=== PATIENT | male | born 1955 | race Caucasian/White ===

== ENCOUNTER 2018-01-17 15:43 | Outpatient (CLI) | payer OTHER ==
--- NOTE | 2018-01-17 16:45 | CT ---
CT CHEST PULMONARY LUNG SCAN NONCONTRAST: 01/17/18 HISTORY: Tobacco abuse. Lung screening. FINDINGS: At the left posterolateral lung bases, a 0.6 cm oval noncalcified subpleural nodule. Immediately infe rior to this are two adjacent nonspecific nodules estimated at 0.2 cm diameter. Calcified granulomata area also present. No pleural fluid, pneumothorax, or mediastinal adenopathy. Prominent calcificatio n within the arteries including the coronary arteries. Liver is diffusely hypodense. IMPRESSION: 1. Left lower lobe subpleural nodule, 0.6 cm. 2. Lung Rads category 3. Indeterminate finding requiring low dose CT followup. Please consider l ow dose CT followup in three months to evaluate for stability. 3. Atherosclerosis. 4. Hepatic steatosis. POS: RANDALH
== END 2018-01-17 15:44 | disposition home or self-care (01) ==
LOC: CT 15:43
PROVIDERS: ATTEND Internal Medicine Pulmonary Disease
DX: R91.1 Solitary pulmonary nodule (principal); K76.0 Fatty (change of) liver, not elsewhere classified; I70.90 Unspecified atherosclerosis; Z87.891 Personal history of nicotine dependence
CPT/HCPCS: G0297

== ENCOUNTER 2018-06-09 15:46 | Outpatient (CLI) | payer OTHER ==
--- NOTE | 2018-06-09 16:35 | CT ---
CT OF THE CHEST WITHOUT CONTRAST: 06/09/18 COMPARISON: 01/17/18. HISTORY: Nicotine dependence. Pulmonary nodules seen on prior CT. Cancer screening protocol. TECHNIQUE: Multiple contiguous axial images were obtained in a CT of the chest without contrast per low dose can cer screening protocol. Sagittal and coronal reformats were performed. FINDINGS: There is a calcified granuloma in the left upper lobe. There is a stable noncalcified nodule in the l eft lower lobe measuring approximately 6 mm in size on image 38 of 62. Just inferior to this nodule, there is peripheral areas of nodularity which are smaller in size than the described nodule that are also stable. No new pulmonary nodules are seen. No focal infiltrates are seen. No pneumothorax or ple ural effusion are seen. The heart is normal in size. The calcifications are seen in the coronary arteries and aorta. No hilar or mediastinal lymphadenopathy are appreciated. The visualized subdiaphragmatic structures are unremarkable. Degenerative changes are seen in the spi ne. IMPRESSION: Stable left sided pulmonary nodules. Lung RADS category 3 - probably benign finding. A followup of lo w dose cancer screening protocol CT in six months is again recommended to ensure continued stability. POS: WADE
== END 2018-06-09 15:47 | disposition home or self-care (01) ==
LOC: CT 15:46
PROVIDERS: ATTEND Internal Medicine Pulmonary Disease
DX: Z12.2 Encounter for screening for malignant neoplasm of respiratory organs (principal); R91.8 Other nonspecific abnormal finding of lung field; Z87.891 Personal history of nicotine dependence
CPT/HCPCS: G0297